=== PATIENT | male | born 1950 ===

== ENCOUNTER 2025-04-30 08:00 | Inpatient (IN) | payer OTHER ==
[~2025-04-30] VITALS: Ht 167.6 cm; Wt 72.6 kg
[2025-04-30] MEDS ORDERED: LOTREL 10-20 M1 EACH PO (08:43)
[2025-04-30] MEDS ORDERED: HORIZANT300 MG PO (08:44)
[2025-04-30] MEDS ORDERED: UROXATRAL10 MG PO (08:44)
[2025-04-30] MEDS ORDERED: LIPITOR20 MG PO (08:44)
[2025-04-30 08:57] VITALS: BP 130/76
[2025-04-30 09:10] LABS: BASO % 0.5 % (0.1-1.2); EOS # 0.15 (0.04-0.54); EOS % 2.4 % (0.7-7.0); HEMATOCRIT 44.6 % (40.1-51.0); HEMOGLOBIN 14.7 g/dL (13.7-17.5); LYMPH # 1.58 (1.18-3.74); LYMPH % 25.8 % (19.3-53.1); MEAN CORPUSCULAR HEMOGLOBIN 27.2 pg (25.6-32.2); MONO # 0.45 (0.24-0.82); MONO % 7.3 % (4.7-12.5); NEUT # 3.88 (1.56-6.13); NEUT % 63.3 % (34.0-71.1); PLATELET COUNT 260 K/uL (163-369); RED BLOOD COUNT 5.41 M/uL (4.63-6.08); RED CELL DISTRIBUTION WIDTH 14.6 % (11.6-14.4)
[2025-04-30 09:19] LABS: URINE APPEARANCE Clear; URINE BACTERIA 4.8 uL (0.0-1933); URINE BILIRRUBIN Negative (NEGATIVE); URINE BLOOD Negative; URINE COLOR Yellow; URINE GLUCOSE Negative (NEGATIVE); URINE KETONE Negative (NEGATIVE); URINE LEUKOCYTE Negative; URINE NITRATE Negative; URINE PROTEIN Negative (NEGATIVE); URINE UROBILINOGEN 0.2 E.U./dl; URINE WBC 1.8 uL (0.0-23.2)
[2025-04-30 09:23] LABS: URINE EPITHELIAL CELLS 1.1 uL (0.0-38.8); URINE RBC 1.4 uL (0.0-20.8)
[2025-04-30 09:29] LABS: PARTIAL THROMBOPLASTIN TIME 26.8 SECONDS (22.0-34.0); PROTHROMBIN TIME 10.9 SECONDS (9.0-11.5)
[2025-04-30 09:42] LABS: COVID-19 AG NEGATIVE (NEGATIVE)
[2025-04-30 10:00] LABS: CREATININE SERUM 0.96 mg/dL (0.70-1.30); GFR 76.99; POTASSIUM 4.54 mEq/L (3.5-5.1)
[2025-04-30 10:15] LABS: RH POSITIVE
[2025-05-06] MEDS ORDERED: HEMOSTATIC MATRIX 1 KIT KIT TOP ONE (07:00)
[2025-05-06] MEDS ORDERED: BUPIVACAINE HCL/MPF 0.5% 30ML VIAL ONE (07:00)
[2025-05-06] MEDS ORDERED: SURGIFLO APPLICATOR 1 EACH APPL TOP ONE (07:00)
[2025-05-06] MEDS ORDERED: ENOXAPARIN SODIUM 40 MG/0.4 ML SYRINGE SUBCUTANEO ONE (07:08)
[2025-05-06] MEDS ORDERED: CEFAZOLIN SODIUM 1,000 MG VIAL ONE (07:08)
[2025-05-06] MEDS ORDERED: SUGAMMADEX SODIUM 200 MG/2 ML VIAL IV ONE (11:44)
[2025-05-06] MEDS ORDERED: MORPHINE SULFATE 4 MG/ML CARTRIDGE IV PRN (12:00)
[2025-05-06] MEDS ORDERED: RINGERS SOLUTION,LACTATED 1,000 ML IV SCH (12:00)
[2025-05-06] MEDS ORDERED: OxyCODONE HCL/APAP UD (PERCOCET) PO PRN (12:00)
[2025-05-06] MEDS ORDERED: ONDANSETRON HCL 2 MG/ML VIAL IV PRN (12:00)
[2025-05-06] MEDS ORDERED: MORPHINE SULFATE 4 MG/ML VIAL IV ONE ×2 (13:00→14:00)
[2025-05-06] MEDS ORDERED: GABAPENTIN 300 MG CAPSULE PO SCH (17:00)
[2025-05-06] MEDS ORDERED: POLYETHYLENE GLYCOL 3350 17 GM BLIST.PACK PO SCH (17:00)
[2025-05-06] MEDS ORDERED: FAMOTIDINE/PF 20 MG/2 ML VIAL IV SCH (21:00)
[2025-05-06] MEDS ORDERED: CEFAZOLIN SODIUM 1,000 MG VIAL IV SCH (21:00)
[2025-05-07 00:59] VITALS: BP 126/66; O2SAT 96
[2025-05-07 07:12] LABS: BASO % 0.2 % (0.1-1.2); EOS # 0.01 (0.04-0.54); EOS % 0.1 % (0.7-7.0); HEMATOCRIT 41.7 % (40.1-51.0); HEMOGLOBIN 13.8 g/dL (13.7-17.5); LYMPH # 0.91 (1.18-3.74); LYMPH % 7.3 % (19.3-53.1); MEAN CORPUSCULAR HEMOGLOBIN 27.7 pg (25.6-32.2); MONO # 1.02 (0.24-0.82); MONO % 8.1 % (4.7-12.5); NEUT # 10.54 (1.56-6.13); PLATELET COUNT 272 K/uL (163-369); RED BLOOD COUNT 4.98 M/uL (4.63-6.08); RED CELL DISTRIBUTION WIDTH 14.7 % (11.6-14.4)
[2025-05-07] MEDS ORDERED: AMLODIPINE BESYLATE 10 MG TABLET PO SCH (09:00)
[2025-05-07] MEDS ORDERED: ENOXAPARIN SODIUM 40 MG/0.4 ML SYRINGE SUBCUTANEO SCH (09:00)
== END 2025-05-07 14:46 | disposition home or self-care (01) | DRG 708 ==
LOC: SURH 05-06 08:00 → SURG 05-06 08:15 → O/R 05-06 08:15 → SURH 05-06 12:45 → SURG 05-06 13:10 → SURH 05-07 08:26
PROVIDERS: ADMIT Urology; ATTEND Urology
PROC: 8E0W4CZ Robotic Assisted Procedure of Trunk Region, Percutaneous Endoscopic Approach (ICD-10-PCS; 2025-05-06)
PROC: 0VT04ZZ Resection of Prostate, Percutaneous Endoscopic Approach (ICD-10-PCS; principal; 2025-05-06 12:45)
DX: C61 Malignant neoplasm of prostate (principal)
CPT/HCPCS: 55866; S2900